=== PATIENT | female | born 1935 | race Caucasian/White ===

== ENCOUNTER 2020-03-21 14:51 | Outpatient (CLI) | payer MEDICARE, OTHER, SELFPAY ==
--- NOTE | 2020-03-21 15:02 | CTR_ITS ---
PROCEDURE INFORMATION: Exam: CT Right Lower Extremity Without Contrast, Hip Exam date and time: 03/21/2020 3:37 PM Age: 84 years old Clinical indication: Pain and injury or trauma; Fall; Initial encounter; Blunt trauma; Hip; Right; Injury date: 03/21/20; Additional info: Pain after fall TECHNIQUE: Imaging protocol: CT of the Right lower extremity without contrast was performed. Exam focused on the hip. Radiation optimization: All CT scans at this facility use at least one of these dose optimization techniques: automated exposure control; mA and/or kV adjustment per patient size (includes targeted exams where dose is matched to clinical indication); or iterative reconstruction. COMPARISON: No relevant prior studies available. RADIATION DOSE METRICS: Total DLP (mGy-cm): 2351.75 FINDINGS: Bones/joints: There are moderate degenerative changes in the right sacroiliac joint. There is osteopenia. 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 No avascular necrosis of the femoral head. No acute fracture of the femur or acetabulum or remainder of the pelvis. No acute sacral fracture is identified. The pubic rami are intact. Soft tissues: There is mild subcutaneous edema adjacent to the right hip both anterior and posterior to the hip joint that may reflect soft tissue contusions without a fluid collection or hematoma. The iliopsoas muscle is mildly enlarged in the superior pelvis and heterogeneous on image 1 in this may reflect a small intramuscular fluid collection such as a hematoma or muscle strain. There is induration of the fat adjacent to the abductor muscles of the medial thigh adjacent to the pubic bones compatible probable mild strain. The pubic rami are intact. Intraperitoneal space: No intraperitoneal fluid collection. Other findings: There is edema or induration of the fat in the presacral soft tissues and along the right pelvic sidewall adjacent to the iliac vessels and superficial to the distal iliopsoas musculotendinous junction. CT/CT hip RT wo con* [id number] IMPRESSION: 1. There is induration of the presacral fat and edema with a trace amount of fluid along the right pelvic sidewall adjacent to the iliac vessels and overlying the right iliopsoas muscle. There is also enlargement of the superior right iliopsoas muscle with heterogeneous density in the muscle that may reflect a recent strain or poorly defined intramuscular hematoma. Intramuscular abscess cannot be entirely excluded without contrast. Please correlate clinically. MRI may be helpful for further evaluation. 2. No acute bony abnormality. 3. There is mild subcutaneous edema adjacent to the right hip both anterior and posterior to the hip joint that may reflect soft tissue contusions without a fluid collection or hematoma. This soft tissue edema is greatest along the groin and abductor muscles and may reflect a recent strain. Radiation Dose CTDIVOL = (mGy): DLP = 2351.75 (mGy-cm)
== END 2020-03-21 14:52 | disposition home or self-care (01) ==
PROVIDERS: Visit Provider Family Medicine
DX: M25.551 Pain in right hip (principal); W19.XXXA Unspecified fall, initial encounter; R60.9 Edema, unspecified
CPT/HCPCS: 73700